=== PATIENT | male | born 1965 | race Caucasian/White ===

== ENCOUNTER 2019-07-11 11:55 | Emergency (ER) | payer OTHER, SELFPAY ==
[~2019-07-11] VITALS: Ht 160 cm; Wt 80.7 kg
[2019-07-11 12:05] VITALS: BP 130/81
--- NOTE | 2019-07-11 12:19 | NUR ---
PT TAKEN TO BED 10.
--- NOTE | 2019-07-11 12:27 | NUR ---
XR AT BEDSIDE.
--- NOTE | 2019-07-11 12:31 | NUR ---
53 Y/M PRESENTS TO ED FOR CONGESTION X 2 MONTHS. PT REPORTS SOB X 3 WEEKS. PT REPORTS COUGH X 2 DAY, NONPRODUCTIVE. PT ALSO REPORTS DIZZINESS X 3 WEEKS. PT WAS SEEN X 2 WEEKS AGO AT [facility], SWABBED FOR COVID AND NEVER HEARD BACK. PT RR EVEN AND UNLABORED. LUNGS CLEAR. DENIES FEVER, NAUSEA, DIARRHEA, CONSTIPATION OR ABD PAIN. ABD SOFT, BS ACTIVE X 4. PMH- HTN, ANXIETY
[2019-07-11 14:00] VITALS: BP 130/81
--- NOTE | 2019-07-11 14:00 | NUR ---
Patient discharged with v/s stable. Written and verbal after care instructions given and explained. Patient alert, oriented and verbalized understanding of instructions. Ambulatory with steady gait. All questions addressed prior to discharge. ID band removed. Patient advised to follow up with PMD. Rx of MOTRIN, PREDNSONE AND ZITHROMAX given. Patient educated on indication of medication including possible reaction and side effects. Opportunity to ask questions provided and answered.
== END 2019-07-11 14:00 | disposition home or self-care (01) ==
LOC: MED 11:55 → EEVIPCON 11:55 → MED 14:00
DX: J18.9 Pneumonia, unspecified organism (principal); I10 Essential (primary) hypertension
CPT/HCPCS: 71045; 99283; Q0092

== ENCOUNTER 2019-07-22 12:09 | Emergency (ER) | payer SELFPAY ==
[~2019-07-22] VITALS: Ht 165.1 cm; Wt 86.2 kg
[2019-07-22 12:25] VITALS: BP 133/86
[2019-07-22] MEDS ORDERED: NACL 0.9% 1,000 ML IV ONE (12:55)
[2019-07-22 13:27] LABS: BASOPHILS # (AUTO) 0.1 K/uL (0.00-0.22); EOSINOPHILS # (AUTO) 0.1 K/uL (0-0.4); HEMATOCRIT 43.2 % (36-52); HEMOGLOBIN 14.8 g/dL (12.0-18.0); LYMPHOCYTES # (AUTO) 1.5 K/uL (2.0-11.5); LYMPHOCYTES % (AUTO) 28.9 % (20.5-51.1); MEAN CORPUSCULAR HEMOGLOBIN 33 pg (27-31); MEAN CORPUSCULAR HGB CONC 34 g/dL (33-37); MEAN CORPUSCULAR VOLUME 95.2 fL (80-94); MONOCYTES # (AUTO) 0.5 K/uL (0.8-1.0); MONOCYTES % (AUTO) 10.1 % (1.7-9.3); NEUTROPHILS # (AUTO) 2.9 K/uL (1.8-7.7); PLATELET COUNT (AUTO) 179 K/uL (140-450); RED BLOOD CELL COUNT(AUTO) 4.53 MIL/uL (4.20-6.10); RED CELL DISTRIBUTION WIDTH 14.2 % (11.6-13.7); WHITE BLOOD COUNT (AUTO) 5.2 K/uL (4.8-10.8)
[2019-07-22 13:32] LABS: APPEARANCE,URINE HAZY (CLEAR); BILIRUBIN,URINE NEGATIVE (NEGATIVE); BLOOD, URINE NEGATIVE (NEGATIVE); COLOR,URINE DARK YELLOW (YELLOW); LEUKOCYTE ESTERASE ,URINE NEGATIVE (NEGATIVE); NITRITE, URINE NEGATIVE (NEGATIVE); PH,URINE 5.5 (5.0-9.0); UGLUCOSE NEGATIVE (NEGATIVE)
[2019-07-22 13:54] LABS: ANION GAP 12.6 (8-16); CARBON DIOXIDE 25.3 mmol/L (21-32); CREATININE 0.8 mg/dL (0.6-1.3); POTASSIUM 3.9 mmol/L (3.5-5.1); THYROID STIMULATING HORMONE 1.02 uIU/mL (0.34-3.74); TOTAL BILIRUBIN 0.6 mg/dL (0.0-1.0)
[2019-07-22 14:47] VITALS: BP 136/79
[2019-07-24 06:15] LABS: CHLAMYDIA TRACHOMATIS AMP DNA Negative (Negative)
== END 2019-07-22 14:47 | disposition home or self-care (01) ==
LOC: MED 12:09 → EEVIPCON 12:09 → MED 14:47
DX: R53.1 Weakness (principal); I10 Essential (primary) hypertension; R63.4 Abnormal weight loss
CPT/HCPCS: 36415; 71045; 80053; 81003; 82550; 83690; 84443; 84484; 85025; 87491; 93005; 99285; J7030; Q0092; 99284

== ENCOUNTER 2019-08-28 16:15 | Emergency (ER) | payer MEDICAID, SELFPAY ==
[~2019-08-28] VITALS: Ht 165.1 cm; Wt 89.8 kg
[2019-08-28 16:26] VITALS: BP 145/95
[2019-08-28 17:36] VITALS: BP 145/95
== END 2019-08-28 17:36 | disposition home or self-care (01) ==
LOC: MED 16:15
DX: R07.9 Chest pain, unspecified (principal); R05 Cough; J45.909 Unspecified asthma, uncomplicated; I10 Essential (primary) hypertension; E78.00 Pure hypercholesterolemia, unspecified; Z20.828 Contact with and (suspected) exposure to other viral communicable diseases
CPT/HCPCS: 71045; 93005; 99285; U0003

== ENCOUNTER 2020-01-28 10:45 | Emergency (ER) | payer MEDICAID ==
[~2020-01-28] VITALS: Ht 167.6 cm; Wt 90.7 kg
[2020-01-28 10:54] VITALS: BP 122/90
--- NOTE | 2020-01-28 10:56 | NUR ---
Patient ambulated to bed 4. RN evaluating patient at bedside.
--- NOTE | 2020-01-28 10:58 | NUR ---
Dr. Rodriguez is evaluating the patient at bedside.
[2020-01-28] MEDS ORDERED: LORazepam 2 MG/ML VIAL IVP STA (11:02)
[2020-01-28] MEDS ORDERED: ASPIRIN 325 MG TAB PO ONE (11:05)
[2020-01-28 11:27] LABS: BASOPHILS % (AUTO) 0.4 % (0.0-2.0); EOSINOPHILS # (AUTO) 0.1 K/uL (0-0.4); EOSINOPHILS % (AUTO) 1.5 % (0.0-4.0); HEMATOCRIT 47.4 % (36-52); HEMOGLOBIN 16.3 g/dL (12.0-18.0); LYMPHOCYTES # (AUTO) 2.2 K/uL (2.0-11.5); LYMPHOCYTES % (AUTO) 35.5 % (20.5-51.1); MEAN CORPUSCULAR HEMOGLOBIN 33 pg (27-31); MEAN CORPUSCULAR HGB CONC 34 g/dL (33-37); MEAN CORPUSCULAR VOLUME 94.5 fL (80-94); MONOCYTES # (AUTO) 0.6 K/uL (0.8-1.0); MONOCYTES % (AUTO) 9.1 % (1.7-9.3); NEUTROPHILS # (AUTO) 3.4 K/uL (1.8-7.7); NEUTROPHILS % (AUTO) 53.5 % (42.2-75.2); PLATELET COUNT (AUTO) 225 K/uL (140-450); RED BLOOD CELL COUNT(AUTO) 5.02 MIL/uL (4.20-6.10); RED CELL DISTRIBUTION WIDTH 13.5 % (11.6-13.7); WHITE BLOOD COUNT (AUTO) 6.3 K/uL (4.8-10.8)
--- NOTE | 2020-01-28 11:42 | NUR ---
PATIENT PRESENTS TO ED WITH CHEST PAIN X2 DAYS . PT STATES PAIN IS NONRADIATING . DENIES N/V/D; SKIN IS PINK/WARM/DRY; AAOX4 WITH EVEN AND STEADY GAIT; LUNGS CLEAR BL; HR EVEN AND REGULAR; PT DENIES ANY FEVER, SOB, OR COUGH AT THIS TIME; PATIENT STATES PAIN OF 7/10 AT THIS TIME; VSS; PATIENT POSITIONED FOR COMFORT; HOB ELEVATED; BEDRAILS UP X2; BED DOWN. ER MD MADE AWARE OF PT STATUS.
--- NOTE | 2020-01-28 11:47 | NUR ---
XRAY AT BEDSIDE
[2020-01-28 12:06] LABS: ANION GAP 15.5 (8-16); CARBON DIOXIDE 24.4 mmol/L (21-32); CREATININE 0.8 mg/dL (0.6-1.3); POTASSIUM 3.9 mmol/L (3.5-5.1)
--- NOTE | 2020-01-28 13:27 | NUR ---
Patient discharged with v/s stable. Written and verbal after care instructions given and explained. Patient verbalized understanding. Ambulatory with steady gait. All questions addressed prior to discharge. Advised to follow up with PMD.
[2020-01-28 14:16] VITALS: BP 122/90
== END 2020-01-28 13:27 | disposition home or self-care (01) ==
LOC: MED 10:45
DX: R07.9 Chest pain, unspecified (principal); I10 Essential (primary) hypertension; K21.9 Gastro-esophageal reflux disease without esophagitis
CPT/HCPCS: 36415; 71045; 80048; 84484; 85025; 96374; 99285; J2060; 93005

== ENCOUNTER 2020-02-05 13:56 | Emergency (ER) | payer MEDICAID ==
[~2020-02-05] VITALS: Ht 162.6 cm; Wt 97.5 kg
[2020-02-05 14:10] VITALS: BP 140/102
--- NOTE | 2020-02-05 14:18 | NUR ---
C/O MID CHEST PAIN . SEEN HERE 1 WEEK AGO FOR SAME S/S & X RAY POSSIBLE PNEUMONIA. COVID TESTED NEGATIVE. TOOK TYLENOL 1 HOUR AGO. PMH: HTN, HLD
--- NOTE | 2020-02-05 14:22 | NUR ---
Patient being evaluated by STEPHANIE GAUTAM at bedside.
--- NOTE | 2020-02-05 14:45 | NUR ---
Patient being reevaluated by STEPHANIE GAUTAM at bedside.
[2020-02-05 15:51] VITALS: BP 138/96
--- NOTE | 2020-02-05 15:51 | NUR ---
Patient discharged with v/s stable. Written and verbal after care instructions given and explained. Patient alert, oriented and verbalized understanding of instructions. Ambulatory with steady gait. All questions addressed prior to discharge. ID band removed. Patient advised to follow up with PMD. Rx of Azithromycin given. Patient educated on indication of medication including possible reaction and side effects. Opportunity to ask questions provided and answered.
== END 2020-02-05 15:51 | disposition home or self-care (01) ==
LOC: MED 13:56
DX: R07.9 Chest pain, unspecified (principal); I10 Essential (primary) hypertension; J45.909 Unspecified asthma, uncomplicated
CPT/HCPCS: 71045; 93005; 99283

== ENCOUNTER 2020-03-15 12:33 | Emergency (ER) | payer MEDICAID ==
[~2020-03-15] VITALS: Ht 165.1 cm; Wt 90.7 kg
[2020-03-15 12:47] VITALS: BP 137/91
--- NOTE | 2020-03-15 12:54 | NUR ---
Patient ambulated to bed 8
--- NOTE | 2020-03-15 13:21 | NUR ---
54 Y/O MALE C/O EPIGASTRIC PAIN 09/21 DESCRIBES BURNING. PT STATES HE FELT SOME DIZZINESS. +CONSTIPATION +N/V. RECENTLY SEEN [facility] PCP IN CLINIC Rx COLACE. PT STATES HE HAS NOT HAD OFT BM X2 WEEKS BUT DID HAVE SOME HARD STOOL TODAY. ABDOMEN IS SOFT, TENDER TO TOUCH IN LLQ, BOWEL SOUNDS ACTIVE X4. PMH:HTN, HIGH CHOL, DM, GERD, ASTHMA NKA
--- NOTE | 2020-03-15 13:26 | NUR ---
Pt ambulated to restroom for UA collection, given to pathology laboratory aides teacher.
[2020-03-15 13:52] LABS: BASOPHILS % (AUTO) 0.9 % (0.0-2.0); EOSINOPHILS # (AUTO) 0.1 K/uL (0-0.4); EOSINOPHILS % (AUTO) 2.1 % (0.0-4.0); HEMATOCRIT 45.6 % (36-52); HEMOGLOBIN 15.7 g/dL (12.0-18.0); LYMPHOCYTES # (AUTO) 1.7 K/uL (2.0-11.5); LYMPHOCYTES % (AUTO) 31.5 % (20.5-51.1); MEAN CORPUSCULAR HEMOGLOBIN 32 pg (27-31); MEAN CORPUSCULAR HGB CONC 34 g/dL (33-37); MEAN CORPUSCULAR VOLUME 94.1 fL (80-94); MONOCYTES # (AUTO) 0.5 K/uL (0.8-1.0); MONOCYTES % (AUTO) 9.7 % (1.7-9.3); NEUTROPHILS % (AUTO) 55.8 % (42.2-75.2); PLATELET COUNT (AUTO) 202 K/uL (140-450); RED BLOOD CELL COUNT(AUTO) 4.84 MIL/uL (4.20-6.10); RED CELL DISTRIBUTION WIDTH 13.3 % (11.6-13.7); WHITE BLOOD COUNT (AUTO) 5.3 K/uL (4.8-10.8)
--- NOTE | 2020-03-15 13:52 | NUR ---
CONSENT FOR IV CONTRAST FOR ABD CT WAS SIGNED BY PT AND DR SIMPSON
[2020-03-15] MEDS: SODIUM CHLORIDE FLUSH 10 ML SYR IVF STA (13:54)
--- NOTE | 2020-03-15 14:02 | NUR ---
PT RESTING IN BED WITH EVEN AND UNLABORED RESPIRATIONS. BED IS IN LOWEST POSITION WITH BRAKES LOCKED.
[2020-03-15 14:06] LABS: APPEARANCE,URINE HAZY (CLEAR); BILIRUBIN,URINE NEGATIVE (NEGATIVE); BLOOD, URINE NEGATIVE (NEGATIVE); COLOR,URINE YELLOW (YELLOW); LEUKOCYTE ESTERASE ,URINE NEGATIVE (NEGATIVE); NITRITE, URINE NEGATIVE (NEGATIVE); PH,URINE 5.5 (5.0-9.0); UGLUCOSE NEGATIVE (NEGATIVE)
[2020-03-15 14:06] LABS: ALBUMIN 4.4 g/dL (3.4-5.0); ANION GAP 10.3 (8-16); CARBON DIOXIDE 27.7 mmol/L (21-32); CREATININE 0.8 mg/dL (0.6-1.3); TOTAL BILIRUBIN 0.6 mg/dL (0.0-1.0)
--- NOTE | 2020-03-15 14:57 | NUR ---
CT AT PT BEDSIDE, TRANSPORT VIA GURNEY.
--- NOTE | 2020-03-15 15:09 | NUR ---
PT BACK FROM CT. AMBULATED TO RESTROOM.
[2020-03-15 16:11] VITALS: BP 141/85
--- NOTE | 2020-03-15 16:12 | NUR ---
Note janaeserafin in EDM - 03/15/20 at 1628 by [email or web address] Patient discharged with v/s stable. Written and verbal after care instructions given and explained. Patient alert, oriented and verbalized understanding of instructions. Ambulatory with steady gait. All questions addressed prior to discharge. ID band removed. Patient advised to follow up with PMD. Rx of norco 5mg-325mg tab, PO q6 hrs, ibuprofen 600mg tab PO TID and zofran ODT 4mg PO Q8 hrs given. Patient educated on indication of medication including possible reaction and side effects. Opportunity to ask questions provided and answered.
--- NOTE | 2020-03-15 16:32 | NUR ---
Patient discharged with v/s stable. Written and verbal after care instructions given and explained. Patient alert, oriented and verbalized understanding of instructions. Ambulatory with steady gait. All questions addressed prior to discharge. ID band removed. Patient advised to follow up with PMD. Rx of tynenol codeine 3 q6h PRN given. Patient educated on indication of medication including possible reaction and side effects. Opportunity to ask questions provided and answered.
== END 2020-03-15 16:32 | disposition home or self-care (01) ==
LOC: MED 12:33
DX: R10.13 Epigastric pain (principal); R11.10 Vomiting, unspecified; J45.909 Unspecified asthma, uncomplicated; E11.9 Type 2 diabetes mellitus without complications; K21.9 Gastro-esophageal reflux disease without esophagitis; I10 Essential (primary) hypertension; E78.00 Pure hypercholesterolemia, unspecified
CPT/HCPCS: 36415; 74177; 80053; 81003; 83690; 85025; 87086; 99285; Q9967

== ENCOUNTER 2020-04-13 12:46 | Emergency (ER) | payer MEDICAID ==
[~2020-04-13] VITALS: Ht 165.1 cm; Wt 97.5 kg
[2020-04-13 12:56] VITALS: BP 116/77
[2020-04-13] MEDS ORDERED: LORazepam 2 MG/ML VIAL IVP STA (13:14)
[2020-04-13 13:21] LABS: BASOPHILS # (AUTO) 0.1 K/uL (0.00-0.22); EOSINOPHILS % (AUTO) 0.8 % (0.0-4.0); HEMATOCRIT 43.9 % (36-52); LYMPHOCYTES # (AUTO) 1.9 K/uL (2.0-11.5); LYMPHOCYTES % (AUTO) 33.7 % (20.5-51.1); MEAN CORPUSCULAR HEMOGLOBIN 32 pg (27-31); MEAN CORPUSCULAR HGB CONC 34 g/dL (33-37); MEAN CORPUSCULAR VOLUME 94.7 fL (80-94); MONOCYTES # (AUTO) 0.6 K/uL (0.8-1.0); MONOCYTES % (AUTO) 11.3 % (1.7-9.3); NEUTROPHILS % (AUTO) 53.2 % (42.2-75.2); PLATELET COUNT (AUTO) 195 K/uL (140-450); RED BLOOD CELL COUNT(AUTO) 4.64 MIL/uL (4.20-6.10); RED CELL DISTRIBUTION WIDTH 13.6 % (11.6-13.7); WHITE BLOOD COUNT (AUTO) 5.6 K/uL (4.8-10.8)
[2020-04-13 13:37] LABS: ANION GAP 11.2 (8-16); CREATININE 0.8 mg/dL (0.6-1.3); POTASSIUM 4.2 mmol/L (3.5-5.1); TOTAL BILIRUBIN 0.5 mg/dL (0.0-1.0)
[2020-04-13] MEDS ORDERED: BENA1TAB69 PO (14:47)
== END 2020-04-13 14:11 | disposition home or self-care (01) ==
LOC: MED 12:46
DX: R20.2 Paresthesia of skin (principal); I10 Essential (primary) hypertension; E78.5 Hyperlipidemia, unspecified
CPT/HCPCS: 36415; 70450; 71045; 80053; 83880; 84484; 85025; 93005; 99285; J2060

== ENCOUNTER 2020-07-31 12:08 | Emergency (ER) | payer MEDICAID ==
[~2020-07-31] VITALS: Ht 162.6 cm; Wt 93.4 kg
[~2020-07-31 12:08] MED LIST: BENA1TAB69 PO
[2020-07-31 12:22] VITALS: BP 136/78
[2020-07-31] MEDS: ALBUTEROL HFA MDI 90 MCG/ACTUATION 8 GM INH ONE (13:20)
[2020-07-31 13:25] LABS: BASOPHILS % (AUTO) 0.6 % (0.0-2.0); EOSINOPHILS # (AUTO) 0.1 K/uL (0-0.4); EOSINOPHILS % (AUTO) 1.8 % (0.0-4.0); HEMATOCRIT 42.3 % (36-52); HEMOGLOBIN 14.5 g/dL (12.0-18.0); LYMPHOCYTES # (AUTO) 1.7 K/uL (2.0-11.5); LYMPHOCYTES % (AUTO) 29.4 % (20.5-51.1); MEAN CORPUSCULAR HEMOGLOBIN 32 pg (27-31); MEAN CORPUSCULAR HGB CONC 34 g/dL (33-37); MEAN CORPUSCULAR VOLUME 93.9 fL (80-94); MONOCYTES # (AUTO) 0.8 K/uL (0.8-1.0); MONOCYTES % (AUTO) 13.8 % (1.7-9.3); NEUTROPHILS # (AUTO) 3.2 K/uL (1.8-7.7); NEUTROPHILS % (AUTO) 54.4 % (42.2-75.2); PLATELET COUNT (AUTO) 186 K/uL (140-450); RED BLOOD CELL COUNT(AUTO) 4.51 MIL/uL (4.20-6.10); RED CELL DISTRIBUTION WIDTH 13.5 % (11.6-13.7); WHITE BLOOD COUNT (AUTO) 5.9 K/uL (4.8-10.8)
[2020-07-31 13:39] LABS: ANION GAP 9.6 (8-16); CARBON DIOXIDE 28.3 mmol/L (21-32); CREATININE 0.8 mg/dL (0.6-1.3); POTASSIUM 3.9 mmol/L (3.5-5.1); TOTAL BILIRUBIN 0.5 mg/dL (0.0-1.0)
[2020-07-31] MEDS ORDERED: ALBU0.0912 INH (14:51)
[2020-07-31] MEDS ORDERED: PRED20TA5 PO (14:51)
[2020-07-31 15:05] VITALS: BP 125/80
== END 2020-07-31 15:05 | disposition home or self-care (01) ==
LOC: MED 12:08
DX: J98.01 Acute bronchospasm (principal); I10 Essential (primary) hypertension; Z20.822 Contact with and (suspected) exposure to COVID-19
CPT/HCPCS: 36415; 71045; 80053; 84484; 85025; 93005; 94664; 99285

== ENCOUNTER 2020-08-13 13:13 | Emergency (ER) | payer MEDICAID ==
[~2020-08-13] VITALS: Ht 165.1 cm; Wt 98.9 kg
[~2020-08-13 13:13] MED LIST changes: +ALBU0.0912 INH; +PRED20TA5 PO
[2020-08-13 13:24] VITALS: BP 139/78
--- NOTE | 2020-08-13 13:35 | NUR ---
pt ambulated to bed 12.
--- NOTE | 2020-08-13 13:45 | NUR ---
54 Y/O M BIB SELF FROM HOME, PT STATES "MY CHEST HURTS AND WHEN I BREATHE IT STINGS." PT SYMPTOMS STARTED LAST NIGHT. ALSO C/O CHEST PAIN 07/22. PT DENIES N/V AND BLURRED VISION, BUT STATES HE IS EXPERINCING KLEIN, DIZZINES. PT STATES HE WAS GIVEN PREDISONE, BUT IT DID NOT HELP. PMH: HTN, HIGH CHOLESTEROL NKA
--- NOTE | 2020-08-13 13:46 | NUR ---
XRAY AND CLASSIFIED ADVERTISING MANAGER BEDSIDE WITH PT
--- NOTE | 2020-08-13 13:48 | NUR ---
YEYO RHETT SWAB TAKEN BEDSIDE AND GIVEN TO TOWER OBSERVER LASHAJAIDA KIRKLAND
[2020-08-13 13:57] LABS: BASOPHILS # (AUTO) 0.1 K/uL (0.00-0.22); BASOPHILS % (AUTO) 0.8 % (0.0-2.0); EOSINOPHILS # (AUTO) 0.1 K/uL (0-0.4); EOSINOPHILS % (AUTO) 1.3 % (0.0-4.0); HEMATOCRIT 44.9 % (36-52); HEMOGLOBIN 15.4 g/dL (12.0-18.0); LYMPHOCYTES # (AUTO) 1.8 K/uL (2.0-11.5); LYMPHOCYTES % (AUTO) 29.6 % (20.5-51.1); MEAN CORPUSCULAR HEMOGLOBIN 33 pg (27-31); MEAN CORPUSCULAR HGB CONC 34 g/dL (33-37); MEAN CORPUSCULAR VOLUME 94.5 fL (80-94); MONOCYTES # (AUTO) 0.7 K/uL (0.8-1.0); MONOCYTES % (AUTO) 11.2 % (1.7-9.3); NEUTROPHILS # (AUTO) 3.5 K/uL (1.8-7.7); NEUTROPHILS % (AUTO) 57.1 % (42.2-75.2); PLATELET COUNT (AUTO) 194 K/uL (140-450); RED BLOOD CELL COUNT(AUTO) 4.75 MIL/uL (4.20-6.10); RED CELL DISTRIBUTION WIDTH 13.7 % (11.6-13.7); WHITE BLOOD COUNT (AUTO) 6.1 K/uL (4.8-10.8)
[2020-08-13 14:36] LABS: ALBUMIN 4.3 g/dL (3.4-5.0); ANION GAP 10.2 (8-16); CARBON DIOXIDE 28.5 mmol/L (21-32); CREATININE 0.8 mg/dL (0.6-1.3); POTASSIUM 3.7 mmol/L (3.5-5.1); TOTAL BILIRUBIN 0.5 mg/dL (0.0-1.0)
--- NOTE | 2020-08-13 14:49 | NUR ---
Pt HOB elevated for comfort, visible equal rise and fall of chest, VSS, will continue to monitor.
--- NOTE | 2020-08-13 15:15 | NUR ---
LAB BEDSIDE WITH PATIENT
--- NOTE | 2020-08-13 16:41 | NUR ---
Pt resting in bed, VSS, will continue to monitor.
[2020-08-13] MEDS ORDERED: ALBU0.0912 INH (17:09)
[2020-08-13 17:18] VITALS: BP 118/71
[2020-08-13] MEDS ORDERED: FLUT0.0560 NS (17:20)
--- NOTE | 2020-08-13 17:20 | NUR ---
Patient discharged with v/s stable. Written and verbal after care instructions given BRONCHOSPASMS AND CHEST WALL PAIN and explained. Patient alert, oriented and verbalized understanding of instructions. Ambulatory with steady gait. All questions addressed prior to discharge. ID band removed. Patient advised to follow up with PMD. Rx of ALBUTEROL 1-2PUFFS Q4-6H PRN SOB, AND FLONASE given. Patient educated on indication of medication including possible reaction and side effects. Opportunity to ask questions provided and answered.
== END 2020-08-13 17:20 | disposition home or self-care (01) ==
LOC: EDBD 13:13 → MED 13:13
DX: R07.9 Chest pain, unspecified (principal); Z20.822 Contact with and (suspected) exposure to COVID-19; I10 Essential (primary) hypertension
CPT/HCPCS: 36415; 71045; 80053; 81002; 83880; 84484; 85025; 93005; 99285

== ENCOUNTER 2020-09-06 20:13 | Emergency (ER) | payer MEDICAID ==
[~2020-09-06] VITALS: Ht 165.1 cm; Wt 99.8 kg
[~2020-09-06 20:13] MED LIST changes: +FLUT0.0560 NS
[2020-09-06 20:27] VITALS: BP 139/84
--- NOTE | 2020-09-06 20:30 | NUR ---
TO LOBBY A/W BED AMBULATORY
--- NOTE | 2020-09-07 00:47 | NUR ---
TO BED 7 FROM THE LOBBY
--- NOTE | 2020-09-07 00:50 | NUR ---
RECEIVED IN BED 7 WITH C/O SPIDER BITE LEFT F/A. DENIES ANY CHEST PAIN OR DISCOMFORT. "I CAME HERE FOR SPIDER BITE". IS ALERT AND ORIENTED. ATTACHED TO CM = SR. SMALL RED SPOT NOTED ON LEFT F/A PMH :HTN NKDA
--- NOTE | 2020-09-07 03:00 | NUR ---
AMBULATED TO BR WITH STEADY GAIT
[2020-09-07 03:20] VITALS: BP 128/74
== END 2020-09-07 03:20 | disposition home or self-care (01) ==
LOC: MED 20:13
DX: S40.862A Insect bite (nonvenomous) of left upper arm, initial encounter (principal); I10 Essential (primary) hypertension; W57.XXXA Bitten or stung by nonvenomous insect and other nonvenomous arthropods, initial encounter; Y93.89 Activity, other specified; Y92.89 Other specified places as the place of occurrence of the external cause; Y99.8 Other external cause status
CPT/HCPCS: 93005; 99283

== ENCOUNTER 2020-12-16 12:14 | Emergency (ER) | payer MEDICAID ==
[~2020-12-16] VITALS: Ht 154.9 cm; Wt 93.9 kg
[2020-12-16 12:19] VITALS: BP 144/85
--- NOTE | 2020-12-16 12:26 | NUR ---
PT AMB TO ER BED 11
[2020-12-16] MEDS ORDERED: LIDOCAINE MPF 1% 10 MG/ML VIAL INJ ONE ×2 (12:40)
--- NOTE | 2020-12-16 13:00 | NUR ---
pt c/o laceration to left elbow. bleeding controlled.
[2020-12-16] MEDS ORDERED: LIDOCAINE MPF 1% 5 ML ONE (14:38)
[2020-12-16] MEDS ORDERED: BACI1PAC6 TP (15:21)
[2020-12-16] MEDS ORDERED: CEPH-588 PO (15:21)
[2020-12-16] MEDS ORDERED: ACET-10509 PO (15:21)
[2020-12-16 15:27] VITALS: BP 116/70
--- NOTE | 2020-12-16 15:27 | NUR ---
pt verbalizes dc instructions no acute distress noted. stable on dc.
== END 2020-12-16 15:28 | disposition home or self-care (01) ==
LOC: MED 12:14
DX: S51.012A Laceration without foreign body of left elbow, initial encounter (principal); I10 Essential (primary) hypertension; W25.XXXA Contact with sharp glass, initial encounter; Y93.89 Activity, other specified; Y92.89 Other specified places as the place of occurrence of the external cause; Y99.8 Other external cause status
CPT/HCPCS: 12002; 73080; 90471; 90715; 99283; J2001; Q0092

== ENCOUNTER 2020-12-19 11:33 | Emergency (ER) | payer MEDICAID ==
[~2020-12-19] VITALS: Ht 162.6 cm; Wt 96.6 kg
[~2020-12-19 11:33] MED LIST changes: +ACET-10509 PO; +BACI1PAC6 TP; +CEPH-588 PO; -PRED20TA5 PO
[2020-12-19 11:38] VITALS: BP 154/72
--- NOTE | 2020-12-19 11:42 | NUR ---
PT TAKEN TO ALEX Lynn
--- NOTE | 2020-12-19 11:44 | NUR ---
Note janaeserafin in EDM - 12/19/20 at 1145 by [facility] 55 Y/O MALE HERE FOR SUTURE REMOVAL TO LEFT ELBOW THAT WAS PLACED X1WEEK AGO. PT STATES HE TOOK ALL PRESCRIBED ABX. DENIES FEVER/CHILLS. DENIES N/V. DENIES PAIN. PMH: HTN, DM, HLD, ANXIETY NKA
--- NOTE | 2020-12-19 11:45 | NUR ---
55 Y/O MALE HERE FOR RECHECK TO LEFT ELBOW THAT WAS PLACED X3DAYS AGO. PT STATES HE IS TAKING ABX. DENIES FEVER/CHILLS. DENIES N/V. DENIES PAIN. PMH: HTN, DM, HLD, ANXIETY NKA
--- NOTE | 2020-12-19 11:46 | NUR ---
PT TAKEN TO LOBBY TO WAIT.
--- NOTE | 2020-12-19 11:56 | NUR ---
PT TAKEN TO ALEX Lynn
[2020-12-19 12:05] VITALS: BP 147/70
--- NOTE | 2020-12-19 12:06 | NUR ---
ELBOW WRAPPED WITH NON ADHERENT AND WRAP.
== END 2020-12-19 13:27 | disposition home or self-care (01) ==
LOC: MED 11:33
DX: S51.012D Laceration without foreign body of left elbow, subsequent encounter (principal); E11.9 Type 2 diabetes mellitus without complications; I10 Essential (primary) hypertension; E78.5 Hyperlipidemia, unspecified; Z79.899 Other long term (current) drug therapy; X58.XXXD Exposure to other specified factors, subsequent encounter
CPT/HCPCS: 99281

== ENCOUNTER 2020-12-24 12:56 | Emergency (ER) | payer MEDICAID ==
[~2020-12-24] VITALS: Ht 163.8 cm; Wt 94.5 kg
[2020-12-24 13:35] VITALS: BP 140/79
[2020-12-24 13:53] VITALS: BP 136/72
[2020-12-24 14:07] VITALS: BP 136/72
--- NOTE | 2020-12-24 14:07 | NUR ---
Patient discharged with v/s stable. Written and verbal after care instructions given and explained. Patient alert, oriented and verbalized understanding of instructions. Ambulatory with steady gait. All questions addressed prior to discharge. ID band removed. Patient advised to follow up with PMD. Opportunity to ask questions provided and answered.
== END 2020-12-24 14:07 | disposition home or self-care (01) ==
LOC: MED 12:56
DX: S51.012D Laceration without foreign body of left elbow, subsequent encounter (principal); Z48.00 Encounter for change or removal of nonsurgical wound dressing; X58.XXXD Exposure to other specified factors, subsequent encounter
CPT/HCPCS: 99281

== ENCOUNTER 2021-05-11 12:44 | Emergency (ER) | payer MEDICAID ==
[~2021-05-11] VITALS: Ht 162.6 cm; Wt 94.5 kg
[2021-05-11 12:50] VITALS: BP 142/84
[2021-05-11] MEDS ORDERED: TETRACAINE HCL/PF 0.5% OPTH 4 ML BTL OP ONE (14:00)
[2021-05-11] MEDS ORDERED: FLUORESCEIN OPTH STRIP 1 MG OP ONE (14:00)
[2021-05-11] MEDS ORDERED: BENA10TA81 PO (14:13)
[2021-05-11] MEDS ORDERED: POLY10SO OP (14:13)
[2021-05-11 15:25] VITALS: BP 142/84
== END 2021-05-11 15:25 | disposition home or self-care (01) ==
LOC: MED 12:44
DX: S05.02XA Injury of conjunctiva and corneal abrasion without foreign body, left eye, initial encounter (principal); H57.11 Ocular pain, right eye; E11.9 Type 2 diabetes mellitus without complications; I10 Essential (primary) hypertension; Z79.899 Other long term (current) drug therapy; Z76.0 Encounter for issue of repeat prescription; X58.XXXA Exposure to other specified factors, initial encounter; Y93.89 Activity, other specified; Y92.89 Other specified places as the place of occurrence of the external cause; Y99.8 Other external cause status
CPT/HCPCS: 99283

== ENCOUNTER 2021-05-13 18:08 | Emergency (ER) | payer MEDICAID ==
[~2021-05-13] VITALS: Ht 154.9 cm; Wt 95.3 kg
[~2021-05-13 18:08] MED LIST changes: +BENA10TA81 PO; +POLY10SO OP
[2021-05-13 18:09] VITALS: BP 135/79
--- NOTE | 2021-05-13 18:25 | NUR ---
STEPHANIE Armstrong at bedside evaluating patient.
[2021-05-13] MEDS ORDERED: ACET-8386 PO (18:31)
[2021-05-13] MEDS ORDERED: ERYT5OIN51 OP (18:31)
--- NOTE | 2021-05-13 18:39 | NUR ---
55 y/o male c/o bilateral eye pain and redness. Patient has blurry vision and photosensitivity x 2 days. Patient was last seen 2 days ago.Patient was prescribed with polymyxin drops. Patient states that pain worsened with medication. Patient denies trauma or injury to eyes. Medical History: HTN, HLD, Anxiety Medications: benazapril, unrecalled NKDA
--- NOTE | 2021-05-13 18:45 | NUR ---
55/M PRESENTS TO ED WITH C/O BILATERAL EYE PAIN AND REDNESS FOR A TOTAL OF 10 DAYS. PATIENT C/O BLURRY VISION AND PHOTOSENSITIVITY, STATES HE WAS SEEN 2 DAYS AGO FOR SAME SYMPTOMS AND GIVEN RX FOR EYE DROPS BUT STATES PAIN AND IRRITATION HAS WORSENED. PATIENT DENIES TRAUMA OR INJURY.
[2021-05-13] MEDS ORDERED: NAPR-54 PO (18:57)
--- NOTE | 2021-05-13 19:04 | NUR ---
Patient discharged with v/s stable. Written and verbal after care instructions given. Patient alert, oriented and verbalized understanding of instructions. Ambulatory with steady gait. All questions addressed prior to discharge. ID band removed. Patient advised to follow up with PMD. Rx of Naproxen and Erythromycin Base given. Opportunity to ask questions provided and answered.
[2021-05-13 19:05] VITALS: BP 135/79
--- NOTE | 2021-05-13 19:08 | NUR ---
The patient's care was reviewed and supervised by Brie Jones RN.
== END 2021-05-13 19:05 | disposition home or self-care (01) ==
LOC: MED 18:08
DX: S05.02XA Injury of conjunctiva and corneal abrasion without foreign body, left eye, initial encounter (principal); S05.01XA Injury of conjunctiva and corneal abrasion without foreign body, right eye, initial encounter; E11.9 Type 2 diabetes mellitus without complications; I10 Essential (primary) hypertension; Z79.899 Other long term (current) drug therapy; X58.XXXA Exposure to other specified factors, initial encounter; Y93.89 Activity, other specified; Y92.89 Other specified places as the place of occurrence of the external cause; Y99.8 Other external cause status
CPT/HCPCS: 99283

== ENCOUNTER 2021-06-15 17:14 | Emergency (ER) | payer MEDICAID ==
[~2021-06-15] VITALS: Ht 160 cm; Wt 68.0 kg
[~2021-06-15 17:14] MED LIST changes: +ERYT5OIN51 OP; +NAPR-54 PO
[2021-06-15 17:23] VITALS: BP 148/86
[2021-06-15 18:42] LABS: BASOPHILS % (AUTO) 0.6 % (0.0-2.0); EOSINOPHILS # (AUTO) 0.1 K/uL (0-0.4); EOSINOPHILS % (AUTO) 1.9 % (0.0-4.0); HEMATOCRIT 43.4 % (36-52); HEMOGLOBIN 14.7 g/dL (12.0-18.0); LYMPHOCYTES # (AUTO) 1.5 K/uL (2.0-11.5); LYMPHOCYTES % (AUTO) 27.7 % (20.5-51.1); MEAN CORPUSCULAR HEMOGLOBIN 32 pg (27-31); MEAN CORPUSCULAR HGB CONC 34 g/dL (33-37); MEAN CORPUSCULAR VOLUME 93.5 fL (80-94); MONOCYTES # (AUTO) 0.7 K/uL (0.8-1.0); MONOCYTES % (AUTO) 12.7 % (1.7-9.3); NEUTROPHILS % (AUTO) 57.1 % (42.2-75.2); PLATELET COUNT (AUTO) 210 K/uL (140-450); RED BLOOD CELL COUNT(AUTO) 4.64 MIL/uL (4.20-6.10); RED CELL DISTRIBUTION WIDTH 13.8 % (11.6-13.7); WHITE BLOOD COUNT (AUTO) 5.2 K/uL (4.8-10.8)
--- NOTE | 2021-06-15 18:50 | NUR ---
RAD AT BEDSIDE
--- NOTE | 2021-06-15 18:55 | NUR ---
DR AGUIAR AT BEDSIDE
--- NOTE | 2021-06-15 19:02 | NUR ---
55 Y/O MALE C/O CHEST PAIN 3/10 RIGHT UNDER THE LEFT STERNAL BORDER, SHARP THAT DISAPPERED, STATED THEY DIDNT FEEL RIGHT SO THEY WENT TO THE ER, DENIES ANY CVHEST PAIN, NAUSEA, VOMITYING, SOB, HEADACHE, STATES THAT SOMETIMES THEY FEEL DIZZY. NKA PMH: DM, HTN, HYPERCHOLESTEROL
[2021-06-15 19:04] LABS: ALBUMIN 4.1 g/dL (3.4-5.0); ANION GAP 11.9 (8-16); CARBON DIOXIDE 26.1 mmol/L (21-32); CREATININE 0.8 mg/dL (0.6-1.3); TOTAL BILIRUBIN 0.4 mg/dL (0.0-1.0)
[2021-06-15 19:07] LABS: LIPASE 101 U/L (73-393)
[2021-06-15] MEDS ORDERED: KETOROLAC 30 MG/ML VIAL IM ONE (19:40)
--- NOTE | 2021-06-15 19:40 | NUR ---
Pt report given to MAY RN. Transfer of care at this time.
[2021-06-15] MEDS ORDERED: NAPR-54 PO (21:09)
[2021-06-15 21:23] VITALS: BP 120/75
== END 2021-06-15 21:23 | disposition home or self-care (01) ==
LOC: MED 17:14
DX: R07.89 Other chest pain (principal); I10 Essential (primary) hypertension; E11.9 Type 2 diabetes mellitus without complications; Z79.899 Other long term (current) drug therapy
CPT/HCPCS: 36415; 71045; 80053; 83690; 83880; 84484; 85025; 93005; 96372; 99285; J1885

== ENCOUNTER 2021-08-05 13:18 | Emergency (ER) | payer MEDICAID ==
[~2021-08-05] VITALS: Ht 165.1 cm; Wt 94.8 kg
[2021-08-05 13:27] VITALS: BP 139/78
--- NOTE | 2021-08-05 14:34 | NUR ---
PT IN GOWN . ON BEDSIDE MONITOR.
--- NOTE | 2021-08-05 14:43 | NUR ---
55YR OLD MALE BIB SELF C/O CP SOB X1 DAY. PT STATES COUGH STARTED TODAY. PAIN /. A&OX4. PT SOB WITH CHEST DISCOMFORT. PT IS ON MONITOR. STATES PAIN WITH INSPIRATION. O2 SAT 97% RA. SIDE RAIL UP X1. BED AT LOWEST POSITION. NKDA ASTHMA
[2021-08-05 14:59] LABS: BASOPHILS % (AUTO) 0.5 % (0.0-2.0); EOSINOPHILS # (AUTO) 0.1 K/uL (0-0.4); EOSINOPHILS % (AUTO) 1.5 % (0.0-4.0); HEMATOCRIT 43.5 % (36-52); HEMOGLOBIN 14.7 g/dL (12.0-18.0); LYMPHOCYTES # (AUTO) 1.4 K/uL (2.0-11.5); LYMPHOCYTES % (AUTO) 26.1 % (20.5-51.1); MEAN CORPUSCULAR HEMOGLOBIN 32 pg (27-31); MEAN CORPUSCULAR HGB CONC 34 g/dL (33-37); MEAN CORPUSCULAR VOLUME 93.7 fL (80-94); MONOCYTES # (AUTO) 0.6 K/uL (0.8-1.0); MONOCYTES % (AUTO) 10.3 % (1.7-9.3); NEUTROPHILS # (AUTO) 3.3 K/uL (1.8-7.7); NEUTROPHILS % (AUTO) 61.6 % (42.2-75.2); PLATELET COUNT (AUTO) 201 K/uL (140-450); RED BLOOD CELL COUNT(AUTO) 4.64 MIL/uL (4.20-6.10); RED CELL DISTRIBUTION WIDTH 13.8 % (11.6-13.7); WHITE BLOOD COUNT (AUTO) 5.4 K/uL (4.8-10.8)
[2021-08-05 15:26] LABS: PROTHROMBIN TIME 10.7 secs (10.8-13.4)
[2021-08-05 15:30] LABS: ALBUMIN 3.9 g/dL (3.4-5.0); ANION GAP 9.1 (8-16); CARBON DIOXIDE 27.9 mmol/L (21-32); CREATININE 0.8 mg/dL (0.6-1.3); TOTAL BILIRUBIN 0.3 mg/dL (0.0-1.0)
--- NOTE | 2021-08-05 15:48 | NUR ---
PT IN BED RESTING . HOB ELEVATED. DENIES ANY PAIN. VITALS WNL. RESP EVEN AND UNLABORED
--- NOTE | 2021-08-05 17:53 | NUR ---
PATIENT UP TO BATHROOM. STEADY GAIT. PENDING DC
[2021-08-05 18:21] VITALS: BP 113/82
--- NOTE | 2021-08-05 18:31 | NUR ---
The patient's care was reviewed and supervised by [facility], RN.
== END 2021-08-05 18:21 | disposition home or self-care (01) ==
LOC: MED 13:18
DX: R07.89 Other chest pain (principal); E11.9 Type 2 diabetes mellitus without complications; I10 Essential (primary) hypertension; Z79.1 Long term (current) use of non-steroidal anti-inflammatories (NSAID); Z79.2 Long term (current) use of antibiotics; Z79.899 Other long term (current) drug therapy
CPT/HCPCS: 36415; 71045; 80053; 83880; 84484; 85025; 85379; 85610; 85730; 93005; 99285; Q0092

== ENCOUNTER 2021-09-02 18:51 | Emergency (ER) | payer MEDICAID ==
[~2021-09-02] VITALS: Ht 157.5 cm; Wt 92.2 kg
[2021-09-02 19:01] VITALS: BP 148/81
[2021-09-02 19:52] LABS: BASOPHILS % (AUTO) 0.5 % (0.0-2.0); EOSINOPHILS # (AUTO) 0.1 K/uL (0-0.4); EOSINOPHILS % (AUTO) 0.9 % (0.0-4.0); HEMATOCRIT 46.3 % (36-52); HEMOGLOBIN 15.6 g/dL (12.0-18.0); LYMPHOCYTES % (AUTO) 27.9 % (20.5-51.1); MEAN CORPUSCULAR HEMOGLOBIN 31 pg (27-31); MEAN CORPUSCULAR HGB CONC 34 g/dL (33-37); MEAN CORPUSCULAR VOLUME 93.2 fL (80-94); MONOCYTES # (AUTO) 0.6 K/uL (0.8-1.0); MONOCYTES % (AUTO) 8.2 % (1.7-9.3); NEUTROPHILS # (AUTO) 4.6 K/uL (1.8-7.7); NEUTROPHILS % (AUTO) 62.5 % (42.2-75.2); PLATELET COUNT (AUTO) 236 K/uL (140-450); RED BLOOD CELL COUNT(AUTO) 4.97 MIL/uL (4.20-6.10); RED CELL DISTRIBUTION WIDTH 13.4 % (11.6-13.7); WHITE BLOOD COUNT (AUTO) 7.3 K/uL (4.8-10.8)
[2021-09-02 20:11] LABS: ALBUMIN 4.3 g/dL (3.4-5.0); ANION GAP 14.9 (8-16); CARBON DIOXIDE 24.6 mmol/L (21-32); CREATININE 0.8 mg/dL (0.6-1.3); POTASSIUM 3.5 mmol/L (3.5-5.1); TOTAL BILIRUBIN 0.3 mg/dL (0.0-1.0)
--- NOTE | 2021-09-02 22:23 | NUR ---
55 Y/O MALE BIBS FROM HOME, C/O OF CHEST PAIN, NAUSEA X2DAYS. A/OX4, GCS-15; UNLABORED BREATHING, SPEAKING IN FULL SENTENCES; AMBULATORY W/O ASSISTANCE; DENIES COUGH, OR FEVER. SKIN PINK/WARM/DRY. NKA PMH: HTN, HDL, ANXIETY
--- NOTE | 2021-09-02 22:25 | NUR ---
ER ASSESSING PT AT BEDSIDE
[2021-09-02] MEDS ORDERED: IBUP-2213 PO (22:36)
[2021-09-02] MEDS ORDERED: PRED20TA5 PO (22:36)
[2021-09-02 22:44] VITALS: BP 144/68
--- NOTE | 2021-09-02 22:46 | NUR ---
Patient discharged with v/s stable. Written and verbal after care instructions given and explained. Patient alert, oriented and verbalized understanding of instructions. Ambulatory with steady gait. All questions addressed prior to discharge. ID band removed. Patient advised to follow up with PMD. Rx of IBUPROFEN AND DELTASONE given. Patient educated on indication of medication including possible reaction and side effects. Opportunity to ask questions provided and answered. VSS, A/OX4, UNLABORED BREATHING, AMBULATORY, AND CALM DEMEANOR.
== END 2021-09-02 22:44 | disposition home or self-care (01) ==
LOC: MED 18:51
DX: R07.89 Other chest pain (principal); R05.9 Cough, unspecified; I10 Essential (primary) hypertension; Z79.899 Other long term (current) drug therapy
CPT/HCPCS: 36415; 71045; 80053; 83880; 84484; 85025; 99284

== ENCOUNTER 2021-09-06 16:06 | Emergency (ER) | payer MEDICAID ==
[~2021-09-06] VITALS: Ht 165.1 cm; Wt 97.5 kg
[~2021-09-06 16:06] MED LIST changes: +IBUP-2213 PO; +PRED20TA5 PO
[2021-09-06 16:24] VITALS: BP 127/62
[2021-09-06] MEDS ORDERED: ASPIRIN 325 MG TAB PO ONE (17:30)
[2021-09-06] MEDS ORDERED: KETOROLAC 15 MG/ML VIAL IVP ONE (17:35)
--- NOTE | 2021-09-06 17:45 | NUR ---
PT AMBULATED WITH STEADY GAIT TO BED 12
--- NOTE | 2021-09-06 17:50 | NUR ---
LAB AT BEDSIDE
[2021-09-06 17:52] LABS: BASOPHILS % (AUTO) 0.4 % (0.0-2.0); EOSINOPHILS % (AUTO) 0.2 % (0.0-4.0); HEMATOCRIT 45.4 % (36-52); HEMOGLOBIN 15.3 g/dL (12.0-18.0); LYMPHOCYTES # (AUTO) 2.7 K/uL (2.0-11.5); LYMPHOCYTES % (AUTO) 32.9 % (20.5-51.1); MEAN CORPUSCULAR HEMOGLOBIN 31 pg (27-31); MEAN CORPUSCULAR HGB CONC 34 g/dL (33-37); MEAN CORPUSCULAR VOLUME 93.1 fL (80-94); MONOCYTES # (AUTO) 1.2 K/uL (0.8-1.0); MONOCYTES % (AUTO) 14.5 % (1.7-9.3); NEUTROPHILS # (AUTO) 4.2 K/uL (1.8-7.7); PLATELET COUNT (AUTO) 234 K/uL (140-450); RED BLOOD CELL COUNT(AUTO) 4.88 MIL/uL (4.20-6.10); RED CELL DISTRIBUTION WIDTH 13.9 % (11.6-13.7); WHITE BLOOD COUNT (AUTO) 8.1 K/uL (4.8-10.8)
--- NOTE | 2021-09-06 17:52 | NUR ---
55 Y/O MALE BIB SELF C/O "LUNG PAIN" X 1 DAY, PT DESCRIBES CHEST PAIN RADIATING TO THE BACK. PT STATES HE HAD COVID LAST WEEK AND HAS RESIDUAL LUNG PAIN. DENIES SOB, DENIES ANY N/V/D, SATTING AT 96% RA, DENIES ANY COUGH NKA PMH: HTN
--- NOTE | 2021-09-06 17:57 | NUR ---
RAD AT BEDSIDE
[2021-09-06 18:25] LABS: ALBUMIN 4.2 g/dL (3.4-5.0); ANION GAP 12.4 (8-16); ASPARTATE AMINOTRANSFERASE 16 U/L (15-37); CARBON DIOXIDE 29.4 mmol/L (21-32); CHLORIDE 104 mmol/L (98-107); CREATININE 0.9 mg/dL (0.6-1.3); GFR ARICAN-AMERICAN 112 mL/min (>90); GLUCOSE 104 mg/dL (74-106); POTASSIUM 3.8 mmol/L (3.5-5.1); SODIUM SERUM 142 mmol/L (136-145); TOTAL BILIRUBIN 0.4 mg/dL (0.0-1.0); UREA NITROGEN, BLOOD 18 mg/dL (7-18)
[2021-09-06] MEDS ORDERED: IBUP-2213 PO (18:50)
[2021-09-06] MEDS ORDERED: PROM118S5 PO (18:50)
[2021-09-06] MEDS ORDERED: CYCL-711 PO (18:50)
[2021-09-06 19:01] VITALS: BP 119/77
--- NOTE | 2021-09-06 19:02 | NUR ---
Patient discharged with v/s stable. Written and verbal after care instructions given and explained. Patient alert, oriented and verbalized understanding of instructions. Ambulatory with steady gait. All questions addressed prior to discharge. ID band removed. Patient advised to follow up with PMD. Rx of FLEXERIL, IBUPROFEN, PROMETHAZINE-DM SYRUP given. Patient educated on indication of medication including possible reaction and side effects. Opportunity to ask questions provided and answered.
== END 2021-09-06 19:30 | disposition home or self-care (01) ==
LOC: MED 16:06
DX: M54.6 Pain in thoracic spine (principal); I10 Essential (primary) hypertension
CPT/HCPCS: 36415; 71045; 80053; 84484; 85025; 93005; 96374; 99285; J1885; Q0092

== ENCOUNTER 2021-12-18 18:08 | Emergency (ER) | payer MEDICAID ==
[~2021-12-18] VITALS: Ht 165.1 cm; Wt 96.6 kg
[~2021-12-18 18:08] MED LIST changes: +CYCL-711 PO; +PROM118S5 PO
[2021-12-18 18:39] VITALS: BP 126/79
[2021-12-18] MEDS ORDERED: IBUP-2213 PO (20:02)
[2021-12-18] MEDS ORDERED: PRED20TA5 PO (20:02)
[2021-12-18] MEDS ORDERED: ACET-50 PO (20:02)
[2021-12-18 20:19] VITALS: BP 126/79
--- NOTE | 2021-12-18 20:19 | NUR ---
Patient discharged with v/s stable. Written and verbal after care instructions given and explained. Patient alert, oriented and verbalized understanding of instructions. Ambulatory with steady gait. All questions addressed prior to discharge. ID band removed. Patient advised to follow up with PMD. Rx of coricidin hbp., ibuprofen, and prednisone given. Patient educated on indication of medication including possible reaction and side effects. Opportunity to ask questions provided and answered.
== END 2021-12-18 20:19 | disposition home or self-care (01) ==
LOC: MED 18:08
DX: R05.9 Cough, unspecified (principal); Z20.822 Contact with and (suspected) exposure to COVID-19; I10 Essential (primary) hypertension; J45.909 Unspecified asthma, uncomplicated; Z79.899 Other long term (current) drug therapy
CPT/HCPCS: 99283

== ENCOUNTER 2022-01-28 15:21 | Emergency (ER) | payer MEDICAID ==
[~2022-01-28] VITALS: Ht 161 cm; Wt 94.6 kg
[~2022-01-28 15:21] MED LIST changes: +ACET-50 PO; +BACI-416 TP; -BACI1PAC6 TP
[2022-01-28 15:24] VITALS: BP 136/92
--- NOTE | 2022-01-28 15:46 | NUR ---
COVID, FLU SWABS DONE.
--- NOTE | 2022-01-28 16:18 | NUR ---
BIB SELF C/O DIZZINESS, SHAKING, WEAKNESS , NAUSEA X TODAY. PMH: HTN, HLD, ASTHMA
[2022-01-28 16:19] LABS: BASOPHILS # (AUTO) 0.1 K/uL (0.00-0.22); BASOPHILS % (AUTO) 1.1 % (0.0-2.0); EOSINOPHILS # (AUTO) 0.1 K/uL (0-0.4); EOSINOPHILS % (AUTO) 2.4 % (0.0-4.0); HEMATOCRIT 44.6 % (36-52); HEMOGLOBIN 15.3 g/dL (12.0-18.0); LYMPHOCYTES # (AUTO) 1.8 K/uL (2.0-11.5); LYMPHOCYTES % (AUTO) 36.2 % (20.5-51.1); MEAN CORPUSCULAR HEMOGLOBIN 32 pg (27-31); MEAN CORPUSCULAR HGB CONC 34 g/dL (33-37); MEAN CORPUSCULAR VOLUME 93.7 fL (80-94); MONOCYTES # (AUTO) 0.5 K/uL (0.8-1.0); MONOCYTES % (AUTO) 10.5 % (1.7-9.3); NEUTROPHILS # (AUTO) 2.5 K/uL (1.8-7.7); NEUTROPHILS % (AUTO) 49.8 % (42.2-75.2); PLATELET COUNT (AUTO) 199 K/uL (140-450); RED BLOOD CELL COUNT(AUTO) 4.76 MIL/uL (4.20-6.10); RED CELL DISTRIBUTION WIDTH 13.7 % (11.6-13.7); WHITE BLOOD COUNT (AUTO) 5.1 K/uL (4.8-10.8)
[2022-01-28 16:39] LABS: APPEARANCE,URINE CLEAR (CLEAR); BILIRUBIN,URINE NEGATIVE (NEGATIVE); BLOOD, URINE NEGATIVE (NEGATIVE); COLOR,URINE YELLOW (YELLOW); LEUKOCYTE ESTERASE ,URINE NEGATIVE (NEGATIVE); NITRITE, URINE NEGATIVE (NEGATIVE); UGLUCOSE NEGATIVE (NEGATIVE)
[2022-01-28 16:50] LABS: ANION GAP 13.5 (8-16); CARBON DIOXIDE 26.8 mmol/L (21-32); CREATININE 0.8 mg/dL (0.6-1.3); POTASSIUM 4.3 mmol/L (3.5-5.1); TOTAL BILIRUBIN 0.4 mg/dL (0.0-1.0)
--- NOTE | 2022-01-28 17:23 | NUR ---
PT AMBULATED TO ER BED 4
--- NOTE | 2022-01-28 17:58 | NUR ---
ct done, now awaits dispo, reports dizziness, nsr on cm, o2 sat 99% ra, sr up times 2
[2022-01-28 17:59] VITALS: BP 129/79
[2022-01-28] MEDS ORDERED: ATA10 PO (18:14)
== END 2022-01-28 18:22 | disposition home or self-care (01) ==
LOC: MED 15:21
DX: R53.1 Weakness (principal); Z20.822 Contact with and (suspected) exposure to COVID-19; R42 Dizziness and giddiness; R11.0 Nausea; J45.909 Unspecified asthma, uncomplicated; I10 Essential (primary) hypertension; Z79.899 Other long term (current) drug therapy
CPT/HCPCS: 36415; 70450; 80053; 81003; 83690; 85025; 99284

== ENCOUNTER 2022-02-25 11:50 | Emergency (ER) | payer MEDICAID ==
[~2022-02-25] VITALS: Ht 167.6 cm; Wt 81.6 kg
[~2022-02-25 11:50] MED LIST changes: +ATA10 PO
[2022-02-25 11:56] VITALS: BP 140/89
[2022-02-25 12:57] LABS: BASOPHILS % (AUTO) 0.7 % (0.0-2.0); EOSINOPHILS # (AUTO) 0.1 K/uL (0-0.4); EOSINOPHILS % (AUTO) 1.8 % (0.0-4.0); HEMATOCRIT 45.3 % (36-52); LYMPHOCYTES % (AUTO) 34.5 % (20.5-51.1); MEAN CORPUSCULAR HEMOGLOBIN 32 pg (27-31); MEAN CORPUSCULAR HGB CONC 35 g/dL (33-37); MEAN CORPUSCULAR VOLUME 90.7 fL (80-94); MONOCYTES # (AUTO) 0.5 K/uL (0.8-1.0); MONOCYTES % (AUTO) 9.1 % (1.7-9.3); NEUTROPHILS # (AUTO) 3.1 K/uL (1.8-7.7); NEUTROPHILS % (AUTO) 53.9 % (42.2-75.2); PLATELET COUNT (AUTO) 208 K/uL (140-450); RED CELL DISTRIBUTION WIDTH 13.8 % (11.6-13.7); WHITE BLOOD COUNT (AUTO) 5.8 K/uL (4.8-10.8)
[2022-02-25 13:30] LABS: ALBUMIN 4.6 g/dL (3.4-5.0); ANION GAP 13.3 (8-16); CARBON DIOXIDE 26.6 mmol/L (21-32); CREATININE 0.8 mg/dL (0.6-1.3); POTASSIUM 3.9 mmol/L (3.5-5.1); TOTAL BILIRUBIN 0.6 mg/dL (0.0-1.0)
[2022-02-25] MEDS ORDERED: ACET-2619 PO (15:36)
[2022-02-25] MEDS ORDERED: IBUP-2213 PO (15:36)
[2022-02-25] MEDS ORDERED: MUC600 PO (15:36)
[2022-02-25] MEDS ORDERED: PROM118S5 PO (15:36)
[2022-02-25] MEDS ORDERED: SUD30 PO (15:36)
[2022-02-25 16:06] VITALS: BP 135/74
--- NOTE | 2022-02-25 16:06 | NUR ---
Patient discharged with v/s stable. Written and verbal after care instructions ABOUT UPPER RESPIRATORY INFECTION given and explained. Patient alert, oriented and verbalized understanding of instructions. Ambulatory with steady gait. All questions addressed prior to discharge. ID band removed. Patient advised to follow up with PMD. Rx of SUDAFED, TYLENOL, MOTRIN, MUCINEX, PROMETHAZINE DM given. Patient educated on indication of medication including possible reaction and side effects. Opportunity to ask questions provided and answered.
[2022-02-25] MEDS ORDERED: ONDA-188 SL (17:40)
== END 2022-02-25 16:06 | disposition home or self-care (01) ==
LOC: MED 11:50
DX: J06.9 Acute upper respiratory infection, unspecified (principal); Z20.822 Contact with and (suspected) exposure to COVID-19; I10 Essential (primary) hypertension; E78.00 Pure hypercholesterolemia, unspecified; J45.909 Unspecified asthma, uncomplicated; E78.5 Hyperlipidemia, unspecified; F41.9 Anxiety disorder, unspecified; Z79.899 Other long term (current) drug therapy
CPT/HCPCS: 36415; 71045; 80053; 83880; 84484; 85025; 99285

== ENCOUNTER 2022-04-11 09:44 | Emergency (ER) | payer MEDICAID ==
[~2022-04-11] VITALS: Ht 160 cm; Wt 96.6 kg
[~2022-04-11 09:44] MED LIST changes: +ACET-2619 PO; +MUC600 PO; +ONDA-188 SL; +SUD30 PO
[2022-04-11 09:49] VITALS: BP 159/96
--- NOTE | 2022-04-11 10:07 | NUR ---
ASSUMED PATIENT CARE, NURSING ASSESSMENT COMPLETED.
--- NOTE | 2022-04-11 10:37 | NUR ---
DR FRANCOIS AT BEDSIDE, MSE COMPLETED.
[2022-04-11] MEDS ORDERED: ASPIRIN 81 MG TAB.CHEW PO ONE (10:45)
[2022-04-11 11:43] LABS: BASOPHILS % (AUTO) 0.6 % (0.0-2.0); EOSINOPHILS # (AUTO) 0.1 K/uL (0-0.4); EOSINOPHILS % (AUTO) 1.4 % (0.0-4.0); HEMATOCRIT 46.6 % (36-52); HEMOGLOBIN 15.8 g/dL (12.0-18.0); LYMPHOCYTES # (AUTO) 1.8 K/uL (2.0-11.5); LYMPHOCYTES % (AUTO) 26.8 % (20.5-51.1); MEAN CORPUSCULAR HEMOGLOBIN 32 pg (27-31); MEAN CORPUSCULAR HGB CONC 34 g/dL (33-37); MONOCYTES # (AUTO) 0.7 K/uL (0.8-1.0); MONOCYTES % (AUTO) 10.4 % (1.7-9.3); NEUTROPHILS # (AUTO) 4.1 K/uL (1.8-7.7); NEUTROPHILS % (AUTO) 60.8 % (42.2-75.2); PLATELET COUNT (AUTO) 210 K/uL (140-450); RED CELL DISTRIBUTION WIDTH 13.9 % (11.6-13.7); WHITE BLOOD COUNT (AUTO) 6.7 K/uL (4.8-10.8)
[2022-04-11 12:08] LABS: ALBUMIN 4.4 g/dL (3.4-5.0); CARBON DIOXIDE 27.1 mmol/L (21-32); CREATININE 0.8 mg/dL (0.6-1.3); POTASSIUM 4.1 mmol/L (3.5-5.1); TOTAL BILIRUBIN 0.4 mg/dL (0.0-1.0)
[2022-04-11 14:15] VITALS: BP 109/67
--- NOTE | 2022-04-11 14:16 | NUR ---
Patient discharged with v/s stable. Written and verbal after care instructions ABOUT HYPERTENSION given and explained. Patient verbalized understanding. Ambulatory with steady gait. All questions addressed prior to discharge. Advised to follow up with PMD.
== END 2022-04-11 14:16 | disposition home or self-care (01) ==
LOC: MED 09:44
DX: I10 Essential (primary) hypertension (principal); E78.5 Hyperlipidemia, unspecified; R10.13 Epigastric pain; J45.909 Unspecified asthma, uncomplicated; Z79.899 Other long term (current) drug therapy
CPT/HCPCS: 36415; 71045; 80053; 83880; 84484; 85025; 99285; Q0092

== ENCOUNTER 2022-05-25 02:40 | Emergency (ER) | payer MEDICAID ==
[~2022-05-25] VITALS: Ht 162.6 cm; Wt 93.9 kg
[2022-05-25 02:48] VITALS: BP 141/86
--- NOTE | 2022-05-25 03:00 | NUR ---
Patient taken to bed 4.
--- NOTE | 2022-05-25 03:22 | NUR ---
Patient resting in bed, A/Ox4, chest rise and fall symmetrical, no c/o pain or s/s of distress, on monitor.
--- NOTE | 2022-05-25 03:36 | NUR ---
X-Ray at bedside.
--- NOTE | 2022-05-25 04:01 | NUR ---
COVID SWAB COLLECTED
--- NOTE | 2022-05-25 04:26 | NUR ---
CHARLY RUBALCAVA ASSESSING PT AT BEDSIDE
[2022-05-25] MEDS ORDERED: AZIT250T3 PO (04:39)
[2022-05-25] MEDS ORDERED: ACET-10509 PO (04:39)
[2022-05-25] MEDS ORDERED: ROB PO (04:39)
[2022-05-25] MEDS: ALBUTEROL 0.083% 2.5 MG/3 ML NEBU INH ONE (04:50)
--- NOTE | 2022-05-25 04:55 | NUR ---
Alton GOODMAN started breathing treatment on patient.
--- NOTE | 2022-05-25 05:13 | NUR ---
Alton RT completed breathing treatment on patient.
--- NOTE | 2022-05-25 05:20 | NUR ---
ER physician at bedside with patient.
[2022-05-25 05:23] VITALS: BP 112/63
--- NOTE | 2022-05-25 05:23 | NUR ---
Patient discharged with v/s stable. Written and verbal after care instructions given and explained. Patient alert, oriented and verbalized understanding of instructions. Ambulatory with steady gait. All questions addressed prior to discharge. ID band removed. Patient advised to follow up with PMD. Rx of AZITHROMYCIN, NAPROXEN AND ROBITUSSIN given. Patient educated on indication of medication including possible reaction and side effects. Opportunity to ask questions provided and answered.
[2022-05-25] MEDS ORDERED: NAPR-54 PO (05:24)
== END 2022-05-25 05:23 | disposition home or self-care (01) ==
LOC: MED 02:40
DX: J20.9 Acute bronchitis, unspecified (principal); Z20.822 Contact with and (suspected) exposure to COVID-19; J45.909 Unspecified asthma, uncomplicated; I10 Essential (primary) hypertension; Z79.899 Other long term (current) drug therapy; Z79.1 Long term (current) use of non-steroidal anti-inflammatories (NSAID); Z79.2 Long term (current) use of antibiotics
CPT/HCPCS: 71045; 87426; 94640; 99284; J7613; Q0092

== ENCOUNTER 2022-06-10 18:54 | Emergency (ER) | payer MEDICAID ==
[~2022-06-10] VITALS: Ht 162.6 cm; Wt 93.4 kg
[~2022-06-10 18:54] MED LIST changes: +AZIT250T3 PO; +ROB PO
[2022-06-10 19:00] VITALS: BP 122/88
--- NOTE | 2022-06-10 19:07 | NUR ---
pt to room 5, ambulatory and steady gait
[2022-06-10] MEDS ORDERED: ALBUTEROL SULFATE/IPRATROPIU 3 ML SOL IH ONE (19:20)
[2022-06-10] MEDS ORDERED: predniSONE 20 MG TAB PO ONE (19:20)
[2022-06-10] MEDS ORDERED: ALBU0.0912 IH (20:03)
[2022-06-10] MEDS ORDERED: PRED20TA5 PO (20:03)
--- NOTE | 2022-06-10 20:07 | NUR ---
Dr. Colin examining patient.
[2022-06-10 20:16] VITALS: BP 145/91
--- NOTE | 2022-06-10 20:16 | NUR ---
D/C BY . PRESCRIBED ALBUTEROL AND DELTASONE.
== END 2022-06-10 20:16 | disposition home or self-care (01) ==
LOC: MED 18:54
DX: J45.901 Unspecified asthma with (acute) exacerbation (principal); R07.0 Pain in throat; I10 Essential (primary) hypertension; F32.9 Major depressive disorder, single episode, unspecified; F41.9 Anxiety disorder, unspecified; Z79.899 Other long term (current) drug therapy
CPT/HCPCS: 94640; 99283; J7512

== ENCOUNTER 2022-10-29 12:57 | Emergency (ER) | payer MEDICAID ==
[~2022-10-29] VITALS: Ht 167.6 cm; Wt 93.4 kg
[~2022-10-29 12:57] MED LIST changes: +ALBU0.0912 IH; -BACI-416 TP; +BACI-418 TP; +MAG355OR2 PO; +ONDA-188 PO
[2022-10-29 13:31] VITALS: BP 133/77; PULSE 93; RESP 18; TEMP 97.8; O2SAT 97
[2022-10-29 14:55] LABS: BASOPHILS % (AUTO) 0.5 % (0.0-2.0); EOSINOPHILS # (AUTO) 0.1 K/uL (0-0.4); EOSINOPHILS % (AUTO) 2.8 % (0.0-4.0); HEMATOCRIT 41.9 % (36-52); HEMOGLOBIN 14.2 g/dL (12.0-18.0); LYMPHOCYTES # (AUTO) 1.3 K/uL (2.0-11.5); LYMPHOCYTES % (AUTO) 24.3 % (20.5-51.1); MEAN CORPUSCULAR HEMOGLOBIN 32 pg (27-31); MEAN CORPUSCULAR HGB CONC 34 g/dL (33-37); MEAN CORPUSCULAR VOLUME 94.3 fL (80-94); MONOCYTES # (AUTO) 0.7 K/uL (0.8-1.0); MONOCYTES % (AUTO) 13.1 % (1.7-9.3); NEUTROPHILS # (AUTO) 3.2 K/uL (1.8-7.7); NEUTROPHILS % (AUTO) 59.3 % (42.2-75.2); PLATELET COUNT (AUTO) 199 K/uL (140-450); RED BLOOD CELL COUNT(AUTO) 4.44 MIL/uL (4.20-6.10); WHITE BLOOD COUNT (AUTO) 5.4 K/uL (4.8-10.8)
[2022-10-29 15:19] LABS: ALBUMIN 3.8 g/dL (3.4-5.0); ANION GAP 11.4 (8-16); CALCIUM 9.2 mg/dL (8.5-10.1); CARBON DIOXIDE 26.8 mmol/L (21-32); CREATININE 0.8 mg/dL (0.6-1.3); POTASSIUM 4.2 mmol/L (3.5-5.1); TOTAL BILIRUBIN 0.3 mg/dL (0.0-1.0); TOTAL PROTEIN, SERUM 7.2 g/dL (6.4-8.2)
[2022-10-29] MEDS ORDERED: ATA25 PO (15:45)
[2022-10-29 15:53] VITALS: BP 125/77; PULSE 88; RESP 18; TEMP 98; O2SAT 98
== END 2022-10-29 15:53 | disposition home or self-care (01) ==
LOC: MED 12:57
DX: R42 Dizziness and giddiness (principal); I10 Essential (primary) hypertension; F41.9 Anxiety disorder, unspecified; J45.909 Unspecified asthma, uncomplicated; E78.5 Hyperlipidemia, unspecified; Z79.899 Other long term (current) drug therapy
CPT/HCPCS: 36415; 71045; 80053; 83880; 84484; 85025; 93005; 99285; Q0092

== ENCOUNTER 2022-12-07 12:24 | Emergency (ER) | payer MEDICAID ==
[~2022-12-07] VITALS: Ht 165.1 cm; Wt 94.3 kg
[~2022-12-07 12:24] MED LIST changes: +ATA25 PO
[2022-12-07 12:42] VITALS: BP 137/94; PULSE 74; RESP 16; TEMP 97.5; O2SAT 97
[2022-12-07] MEDS ORDERED: BACTO TP (12:55)
== END 2022-12-07 13:13 | disposition home or self-care (01) ==
LOC: MED 12:24
DX: S60.512A Abrasion of left hand, initial encounter (principal); R03.0 Elevated blood-pressure reading, without diagnosis of hypertension; J45.909 Unspecified asthma, uncomplicated; I10 Essential (primary) hypertension; Z79.899 Other long term (current) drug therapy; X58.XXXA Exposure to other specified factors, initial encounter; Y93.89 Activity, other specified; Y92.89 Other specified places as the place of occurrence of the external cause; Y99.8 Other external cause status
CPT/HCPCS: 99283

== ENCOUNTER 2023-03-03 02:43 | Emergency (ER) | payer MEDICAID ==
[~2023-03-03] VITALS: Ht 167.6 cm; Wt 90.7 kg
[~2023-03-03 02:43] MED LIST changes: +BACTO TP; -FLUT0.0560 NS; +FLUT16SP9 NS
[2023-03-03 03:13] VITALS: BP 156/102; PULSE 78; RESP 20; TEMP 97.8; O2SAT 98
[2023-03-03] MEDS ORDERED: HYDROcodone/APAP 5/325 MG 1 TAB TAB PO ONE (04:15)
[2023-03-03] MEDS ORDERED: AMOX-1230 PO (04:25)
[2023-03-03] MEDS ORDERED: TRAM50TA3 PO (04:26)
[2023-03-03 04:52] VITALS: BP 156/102; PULSE 78; RESP 20; TEMP 97.8; O2SAT 98
== END 2023-03-03 04:45 | disposition home or self-care (01) ==
LOC: MED 02:43
DX: K04.7 Periapical abscess without sinus (principal); J45.909 Unspecified asthma, uncomplicated; I10 Essential (primary) hypertension; Z79.899 Other long term (current) drug therapy; Z79.1 Long term (current) use of non-steroidal anti-inflammatories (NSAID); Z79.2 Long term (current) use of antibiotics
CPT/HCPCS: 99283

== ENCOUNTER 2023-06-24 10:12 | Emergency (ER) | payer MEDICAID ==
[~2023-06-24] VITALS: Ht 165.1 cm; Wt 95.3 kg
[~2023-06-24 10:12] MED LIST changes: +AMOX-1230 PO; +FLUT16SP10 NS; -FLUT16SP9 NS; +NAPR-337 PO; -NAPR-54 PO; +TRAM50TA3 PO
[2023-06-24 10:17] VITALS: BP 140/93; PULSE 86; RESP 20; TEMP 98.1; O2SAT 98
[2023-06-24 10:59] VITALS: BP 130/70; PULSE 80; RESP 17; O2SAT 98
== END 2023-06-24 11:00 | disposition home or self-care (01) ==
LOC: MED 10:12
DX: I10 Essential (primary) hypertension (principal); F41.9 Anxiety disorder, unspecified; R42 Dizziness and giddiness; R07.9 Chest pain, unspecified; J45.909 Unspecified asthma, uncomplicated; Z79.899 Other long term (current) drug therapy
CPT/HCPCS: 93005; 99283

== ENCOUNTER 2023-10-14 11:55 | Emergency (ER) | payer MEDICAID ==
[~2023-10-14] VITALS: Ht 162.6 cm; Wt 97.7 kg
[~2023-10-14 11:55] MED LIST changes: -ACET-10509 PO; +ACET500T99 PO
[2023-10-14 12:07] VITALS: BP 134/80; PULSE 99; RESP 18; TEMP 98.6; O2SAT 97
--- NOTE | 2023-10-14 12:10 | NUR ---
Pt has had a headache since this morning from the back of the head to the top. took motrin with helpful results. Call light with in reach; Er doc made aware of pts status. pmh: anxiety, htn, hlp allergies: denies
[2023-10-14] MEDS ORDERED: ONDA8TAB87 PO (12:39)
[2023-10-14] MEDS: ONDANSETRON 4 MG ODT PO ONE (12:40)
--- NOTE | 2023-10-14 12:40 | NUR ---
pt has been medicated per providers orders.
[2023-10-14] MEDS: KETOROLAC 60 MG/2 ML VIAL IM ONE (12:41)
[2023-10-14 13:02] VITALS: BP 134/80; PULSE 99; RESP 18; TEMP 98.6; O2SAT 97
--- NOTE | 2023-10-14 13:03 | NUR ---
Chart checked and completed. The patient's care was reviewed and supervised by ASHTYN FRANCISCO RN.
== END 2023-10-14 13:02 | disposition home or self-care (01) ==
LOC: MED 11:55
DX: R51.9 Headache, unspecified (principal); R11.0 Nausea; J45.909 Unspecified asthma, uncomplicated; I10 Essential (primary) hypertension; Z79.899 Other long term (current) drug therapy
CPT/HCPCS: 96372; 99283; J1885; Q0162